=== PATIENT | female | born 1965 | race Two or more races ===

== ENCOUNTER 2025-02-26 18:17 | Emergency (ER) | payer MEDICAID, OTHER ==
[~2025-02-26] VITALS: Ht 154.9 cm; Wt 60.0 kg
[2025-02-26] MEDS ORDERED: KETOROLAC TROMETH 30 MG/ML 1ML VIAL IM ONE (18:45)
--- NOTE | 2025-02-26 18:57 | ED.PDOC ---
History of Present Illness HPI Comments 60 year female presents to the ED with presyncope prior to arrival. She was brought in by EMS. She states she was sitting on the couch no became suddenly dizzy and had numbness on the bilateral lower extremities Patient reports she has recently been diagnosed with migraines and started on topiramate. She has been reporting left facial and left body numbness for several weeks. He had CT head which was negative. Patient has history also includes hypertension, vertigo and arthritis. She is reporting some associated left shoulder pain, headache, dizziness, and palpitations in upper back pain. Review of systems: As stated in HPI PHYSICAL EXAM: General: Awake, alert and oriented. No acute distress. Skin: Skin in warm, dry and intact. Appropriate color for ethnicity. HEENT: The head is normocephalic and atraumatic. Conjunctivae are clear without exudates or hemorrhage. Sclera is non-icteric. Eyelids are normal in appearance without swelling or lesions. Oral mucosa is pink and moist Neck: The neck is supple with normal range of motion. No JVD. Cardiac: Heart rate and rhythm are normal. No murmurs, gallops, or rubs are auscultated. Respiratory: No signs of respiratory distress. Lung sounds are clear in all lobes bilaterally without rales, rhonchi, or wheezes. Abdominal: Abdomen is soft, non-tender without distention, guarding or rigidity. Bowel sounds are present and normoactive in all four quadrants. Extremities: Lower extremities without edema. Neurological: The patient is awake, alert and oriented to person, place, and time with normal speech. Speech is clear. There is no facial asymmetry. Normal [id number] test. Strength in upper and lower extremities intact. Sensation intact. Psychiatric: Appropriate mood and affect. Good judgement and insight. Chief Complaint: Syncope Time Seen by MD: 18:24 Allergies: Coded Allergies: NO KNOWN ALLERGIES (Unverified , 02/26/25) Mode of Arrival: EMS Was a procedure done? Was a procedure done?: No EKG EKG : Comments Sinus rhythm, rate of 88, QTC 448. No STEMI Differential Dx Considerations may include: Differential diagnoses considered include but are not limited to cardiac structural disease, arrhythmia, acute coronary syndrome, orthostasis, pulmonary embolism, dissection, seizure, basilar stroke, other. X-Ray, Labs, Meds, VS Vital Signs Date Time Temp Pulse Resp B/P (MAP) Pulse Ox O2 Delivery O2 Flow Rate FiO2 02/27/25 00:39 70 16 131/72 (91) 98 02/27/25 00:25 Room Air* 0 21 02/26/25 22:18 97.9 73 14 125/81 (96) 97 97.9 02/26/25 21:52 98.2 82 18 118/70 (86) 97 98.2 02/26/25 18:27 88 02/26/25 18:20 98.4 91 16 153/96 98 98.4 Lab Test 02/26/25 18:56 Range/Units White Blood Count 3.9 L 4.4-10.8 10^3/uL Red Blood Count 4.94 4.0-5.20 10^6/uL Hemoglobin 14.2 12.2-16.2 g/dL Hematocrit 41.8 36.0-46.0 % Mean Corpuscular Volume 84.6 80.0-100.0 fL Mean Corpuscular Hemoglobin 28.7 28.0-32.0 pg Mean Corpuscular Hemoglobin Concent 34.0 32.0-36.0 g/dL Red Cell Distribution Width 13.7 11.8-14.3 % Platelet Count 249 140-450 10^3/uL Mean Platelet Volume 7.4 6.9-10.8 fL Neutrophils (%) (Auto) 57.3 37.0-80.0 % Lymphocytes (%) (Auto) 29.9 10.0-50.0 % Monocytes (%) (Auto) 9.3 0.0-12.0 % Eosinophils (%) (Auto) 3.0 0.0-7.0 % Basophils (%) (Auto) 0.5 0.0-2.0 % Neutrophils # (Auto) 2.2 1.6-8.6 10 ^3/uL Lymphocytes # (Auto) 1.2 0.4-5.4 10 ^3/uL Monocytes # (Auto) 0.4 0-1.3 10 ^3/uL Eosinophils # (Auto) 0.1 0-0.8 10 ^3/uL Basophils # (Auto) 0 0-0.2 10 ^3/uL Nucleated Red Blood Cells 0.2 % Sodium Level 136 136-145 mmol/L Potassium Level 3.8 3.5-5.1 mmol/L Chloride Level 101 98-107 mmol/L Carbon Dioxide Level 24 20-31 mmol/L Anion Gap 11 5-15 Blood Urea Nitrogen 7 L 9-23 mg/dL Creatinine 0.53 L 0.550-1.02 mg/dL Glomerular Filtration Rate Calc 105 >90 mL/min BUN/Creatinine Ratio 13.2 10.0-20.0 Serum Glucose 106 74-106 mg/dL Calcium Level 8.9 8.7-10.4 mg/dL Troponin I High Sensitivity 3 L </=34 ng/L B-Type Natriuretic Peptide 13.55 0-100 pg/mL Current Medications Medications (Trade) Dose Ordered Sig/Luis Route Start Time Stop Time Status Last Admin Sodium Chloride 1,000 ml @ 1,000 mls/hr Q1H ONCE IV 02/26/25 22:00 02/26/25 22:59 DC 02/26/25 22:25 Ketorolac Tromethamine (Toradol Injection) 15 mg ONCE ONCE IV 02/26/25 22:30 02/26/25 22:31 DC 02/26/25 22:25 Time of 1ST Reevaluation: 18:52 Reevaluation 1ST: Unchanged Patient Education/Counseling: Need For Follow Up Family Education/Counseling: No Family Present SEPSIS Sepsis Screen Date sepsis recognized/suspect: Feb 26, 2025 Time Sepsis recognized/suspect: 1819 Recent Procedure: No On Antibiotic Therapy: No Respiratory Rate >20: No Heart Rate >90: Yes Temp<36 C (96.8 F) or >38.3 C: No SBP <90 or MAP <65 mmHG: No New Acute Mental Status Change: No Is the patient on CPAP, BIPAP,: No Physician Orders Electrocardigram (02/26/25 18:30) Water Plumber (02/26/25 ) Orthostatic Vital Signs (02/26/25 ) Chest Xray 1 View (02/26/25 21:09) Head Without Contrast (02/26/25 22:28) Vital Signs Date Time Temp Pulse Resp B/P (MAP) Pulse Ox O2 Delivery O2 Flow Rate FiO2 02/27/25 00:39 70 16 131/72 (91) 98 02/27/25 00:25 Room Air* 0 21 02/26/25 22:18 97.9 73 14 125/81 (96) 97 97.9 02/26/25 21:52 98.2 82 18 118/70 (86) 97 98.2 02/26/25 18:27 88 02/26/25 18:20 98.4 91 16 153/96 98 98.4 Laboratory Tests Test 02/26/25 18:56 White Blood Count 3.9 10^3/uL (4.4-10.8) L Departure 1 Departure Time of Disposition: 21:34 Impression: Primary Impression: Dizziness Additional Impression: Headache Disposition: 01 HOME / SELF CARE / HOMELESS Condition: Stable Additional Instructions: INSTRUCCIONES DE MARY GRACE DE Urgencias Instrucciones: Xiomara atentamente todas las instrucciones proporcionadas en adrian paquete. Aunque le hayan dado el mary grace del Departamento de Emergencias, esto no significa que tenga un "certificado de buena ángel". Hoy no se lombardi realizado ningn diagnstico definitivo para larisa sntomas. Es posible que ests en proceso de desarrollar benny enfermedad grave. Es por eso que debe regresar al servicio de ur gencias sin falta si presenta algn sntoma nuevo o que empeora (especialmente si larisa sntomas incluyen dolor en el pecho, dificultad para respirar, dolor abdominal, fiebre, dolor de madison, confusin, dificultad para lizett o caminar). Everette es muy importante que consulte a un mdico de atencin primaria dentro de los prximos 3 a 5 osorio para realizar un seguimiento. Si no puede conseguir benny stacy, regrese al servicio de urgencias para benny nueva evaluacin. Mareos: Instrucciones de cuidado Descripcin general El mareo es la sensacin de inestabilidad o confusin mental. Es diferente del vrtigo, que es la sensacin de que la habitacin da vueltas, de que jennifer se mueve o se . Tambin es diferente del aturdimiento, que es la sensacin de estar a punto de desmayarse. Puede ser difcil saber qu causa el mareo. Algunas personas se sienten mareadas cuando tienen migraas. A veces, los episodios de gripe pueden causar mareos. Algunas afecciones mdicas, elvia problemas cardacos o hipertensin arterial, tambin pueden causar mareos. Muchos medicamentos pueden causar mareos, incluyendo los medicamentos para la hipertensin, el dolor o la ansiedad. Si un medicamento le causa los sntomas, caputo mdico podra recomendarle que lo suspenda o lo cambie. Si se trata de un problema cardaco, podra necesitar medicamentos para mejorar caputo funcionamiento. Si no hay benny causa christian de larisa sntomas, caputo mdico podra sugerirle que observe y espere un tiempo para lizett si el mareo desaparece por s solo. El seguimiento es fundamental para caputo tratamiento y seguridad. Asegrese de programar y acudir a todas larisa citas, y llame a caputo mdico si tiene algn pr oblema. Everette es recomendable estar al tanto de los resultados de larisa pruebas y llevar benny lista de los medicamentos que diane. Ton Container Filler puedes cuidarte en casa? Si caputo mdico le recomienda o le receta un medicamento, tmelo exactamente elvia se lo indique. Llame a caputo mdico si evan que tiene algn problema con caputo medicamento. No conduzca si se siente mareado. Intente prevenir las cadas. Algunas medidas que puede myke son: Usar tapetes antideslizantes, agregar barras de apoyo cerca de la baera y usar luces nocturnas. Limpiar caputo casa para que los pasillos estn libres de cualquier cosa con la que pueda tropezar. Avisar a familiares y amigos que se lombardi sentido mareado les ayudar a saber paper cutting machine operator ayudarle. Cundo debes pedir ayuda? Llame al 911 en cualquier momento que considere que necesita atencin de emergencia. Por ejemplo, llame si: Te desmayaste (perdiste el conocimiento). Tienes mareos repentinos que no mejoran. Tiene mareos y sntomas de un infarto. Estos pueden incluir: Dolor o presin en el pecho, o benny sensacin extraa en el pecho. Transpiracin. Dificultad para respirar. Nuseas o vmitos. Dolor, presin o benny sensacin extraa en la espalda, el gonzales, la mandbula o la parte superior del abdomen o en jennifer o ambos hombros o brazos. Mareo o debilidad repentina. Un ritmo cardaco rpido o irregular. Tiene sntomas de un derrame cerebral. Estos pueden incluir: Entumecimiento repentino, hormigueo, debilidad o prdida de movimiento en la misty, el brazo o la pierna, especialmente en un solo lado del cuerpo. Cambios repentinos en la visin. Dificultad repentina para hablar. Confusin repentina o dificultad para comprender afirmaciones simples. Problemas repentinos con la marcha o el equilibrio. Un dolor de madison repentino y kevan que es diferente a los tanna de madison anteriores. Llame a caputo mdico ahora o busque atencin mdica inmediata si: Se siente mareado y tiene fiebre, dolor de madison o zumbido en los odos. Tiene nuseas y vmitos nuevos o en aumento. El mareo no desaparece ni regresa. Preste atencin a los cambios en caputo ángel y asegrese de comunicarse con caputo mdico si: No mejoras elvia esperabas Crditos para el mareo: Instrucciones de cuidado Actualizado al: 3 de diciere 2023 Autor: Personal de [facility] Junta de revisin clnica Toda la educacin de [facility], [facility] es revisada por un equipo que incluye mdicos, enfermeras, profesionales avanzados, dietistas registrados y otros profesionales de la ángel. Dolor de madison por migraa: instrucciones de cuidado Tabla de contenido Descripcin general Ton Container Filler puedes cuidarte en casa? Cundo debes pedir ayuda? Crditos Descripcin general Las migraas son tanna de madison punzantes y dolorosos que suelen comenzar en un lado de la madison. Pueden causar nuseas y vmitos y hacer que el paciente se vuelva sensible a la ashish, los sonidos o los olores. Sin tratamiento, las migraas pueden durar desde 4 horas hasta algunos osorio. Los medicamentos pueden ayudar a prevenir las migraas o detenerlas benny vez que hayan comenzado. Caputo mdico puede ayudarlo a encontrar los que funcionan mejor para usted. El seguimiento mdico es benny parte fundamental de caputo tratamiento y caputo seguridad. Asegrese de programar y acudir a todas las citas, y llame a caputo mdico si tiene problemas. Tambin es benny buena idea saber los resultados de larisa pruebas y llevar benny lista de los medicamentos que diane. Ton Container Filler puedes cuidarte en casa? No conduzca si lombardi tomado algn analgsico recetado. Descanse en benny habitacin tranquila y oscura hasta que desaparezca el dolor de madison. Cierre los ojos e intente relajarse o dormir. No mc televisin ni xiomara. Coloque un kenny hmedo y fro o benny compresa fra sobre la frank dolorida filipe 10 a 20 minutos cada vez. Coloque un kenny cornelio entre la compresa fra y la piel. Utilice benny toalla tibia y hmeda o benny almohadilla trmica a temperatura baja para relajar los msculos tensos de los hombros y el gonzales. Pdale a alguien que le masajee suavemente el gonzales y los hombros. [place] larisa medicamentos exactamente elvia le hayan recetado. Llame a caputo mdico si evan que tiene un problema con caputo medicamento. Recibir ms detalles sobre los medicamentos especficos que le recete caputo mdico. No tome medicamentos para el dolor de madison con demasiada frecuencia. Hable con caputo mdico si est tomando medicamentos ms de 2 osorio a la semana para aliviar el dolor de madison. Myke demasiados analgsicos puede provocar ms tanna de madison. Estos se denominan tanna de madison por uso excesivo de medicamentos. Para prevenir las migraas Lleva un diario de tus tanna de madison para que puedas identificar qu los desencadena. Evitar los desencadenantes puede ayudarte a prevenirlos. Registra cundo comenz cada dolor de madison, cunto dur y paper cutting machine operator fue. Anota cualquier otro sntoma que hayas tenido junto con el dolor de madison, elvia nuseas, luces intermitentes o manchas oscuras, o sensibilidad a la ashish brillante o a los ruidos marco a. Anota si el dolor de madison se produjo cerca de tu perodo. Haz benny lista de todo lo que podra leonid desencadenado el dolor de madison. Los desencadenantes pueden incluir ciertos alimentos (chocolate, queso, vino) u olores, humo, ashish brillante, estrs o falta de sueo. Si caputo mdico le lombardi recetado medicamentos para las migraas, tmelos segn las indicaciones. Puede myke medicamentos solo cuando le d migraa y medicamentos que tome todo el tiempo para ayudar a prevenir las migraas. Si caputo mdico le lombardi recetado un medicamento para cuando le duele la madison, tmelo ante la primera seal de migraa, a menos que le haya dado otras instru cciones. Si caputo mdico le lombardi recetado medicamentos para prevenir las migraas, tmelos exactamente elvia se lo indiquen. Llame a caputo mdico si evan que tiene un problema con caputo medicamento. Busque formas saludables de lidiar con el estrs. Las migraas son ms comunes filipe o inmediatamente despus de perodos estresantes. Intente encontrar formas de reducir el estrs, elvia practicar la atencin plena o ejercicios de respiracin profunda. Duerma trenton y gonzalo ejercicio, su tenga cuidado de no esforzarse demasiado filipe el ejercicio, ya que puede provocarle dolor de madison. Siga un horario regular para comer. Evite los alimentos y las bebidas que suelen desencadenar migraas, elvia el chocolate, el alcohol (especialmente el vino tinto y el oporto), el aspartamo, el glutamato monosdico (GMS) y algunos aditivos presentes en los alimentos (elvia los perritos calientes, el tocino, los embutidos, los quesos curados y los encurtidos). Limite la cafena. No tome demasiado caf, t o refrescos, su no deje de myke cafena de repente, ya que tambin puede provocarle migraas. No fume ni permita que otras personas fumen cerca de usted. Si necesita ayuda para dejar de fumar, hable con caputo mdico sobre programas y medicamentos para dejar de fumar. Estos pueden aumentar larisa probabilidades de dejar de fumar para siempre. Si est tomando pldoras anticonceptivas o terapia hormonal, hable con caputo mdico sobre si gabby son las causas de larisa migraas. Cundo debes pedir ayuda? Llame al 911 en cualquier momento en que considere que puede necesitar atencin de emergencia. Por ejemplo, llame si: Tiene sntomas de un accidente cerebrovascular, que pueden incluir: Entumecimiento repentino, parlisis o debilidad en la misty, el brazo o la pierna, especialmente en un solo lado del cuerpo. Cambios repentinos en la visin. Dificultad repentina para hablar. Confusin repentina o dificultad para comprender afirmaciones simples. Problemas repentinos con la marcha o el equilibrio. Un dolor de madison repentino y kevan que es diferente a los tanna de madison anteriores. Llame a caputo mdico ahora o busque atencin mdica inmediata si: Tienes fiebre y el gonzales rgido. Tu dolor de madison empeora mucho. Preste atencin a los cambios en caputo ángel y asegrese de comunicarse con caputo mdico si: Larisa tanna de madison empeoran, ocurren con ms frecuencia o cambian de alguna manera. Tienes nuevos sntomas. Tu paulette se ve alterada por tus tanna de madison. Por ejemplo, a menudo faltas al trabajo, a la escuela o a otras actividades. No mejoras elvia esperabas Crditos para la migraa: instrucciones de cuidado Actualizado al: 3 de diciembre 2023 Autor: Personal de [employer] Junta de revisin clnica Toda la educacin de [employer] es revisada por un equipo que incluye mdicos, enfermeras, profesionales avanzados, dietistas registrados y otros profesionales de la ángel. Comments Patient well-appearing, nontoxic with no neuro deficit in the emergency department. Lab and imaging results reviewed, not urgently actionable. Patient is feeling improved. She is felt stable to follow up with the primary care provider for further evaluation. Critical Care Note Critical Care Time?: No Stability Stability form required: No Heart Score Heart Score: Heart Score Response (Comments) Value History N/A 0 EKG N/A 0 Age N/A 0 Risk Factors N/A 0 Troponin N/A 0 Total 0 AMERICA MENENDEZ MD Feb 26, 2025 18:57
[2025-02-26 19:14] LABS: Hematocrit 41.8 % (36.0-46.0); Hemoglobin 14.2 g/dL (12.2-16.2); Mean Corpuscular Hemoglobin 28.7 pg (28.0-32.0); Mean Corpuscular Volume 84.6 fL (80.0-100.0); Nucleated Red Blood Cells % 0.2 %
[2025-02-26 19:24] LABS: Chloride 101 mmol/L (98-107); Potassium 3.8 mmol/L (3.5-5.1)
[2025-02-26 19:25] LABS: Anion Gap 11 (5-15); Calcium 8.9 mg/dL (8.7-10.4); Carbon Dioxide 24 mmol/L (20-31)
[2025-02-26 19:30] LABS: BUN/Creatinine Ratio 13.2 (10.0-20.0); Glucose 106 mg/dL (74-106)
[2025-02-26 19:32] LABS: Blood Urea Nitrogen 7 mg/dL (9-23); Sodium 136 mmol/L (136-145)
--- NOTE | 2025-02-26 21:51 | DVH ---
EXAM: XY CHEST XRAY 1 VIEW HISTORY: Left shoulder pain, palpitations, presyncope TECHNIQUE: 1 view of the chest COMPARISON: None FINDINGS/IMPRESSION: LUNGS: No pleural effusion, consolidation, or pneumothorax. MEDIASTINUM: Unremarkable. BONES: No acute osseous abnormality. OTHER: None.
[2025-02-26 22:18] VITALS: TEMP 97.9
[2025-02-26] MEDS: ACETAMINOPHEN 325 MG TAB PO ONE (22:24)
[2025-02-26] MEDS: SODIUM CHLORIDE 0.9% 1,000 ML IV ONE (22:25)
[2025-02-26] MEDS: KETOROLAC TROMETH 30 MG/ML 1ML VIAL IV ONE (22:25)
--- NOTE | 2025-02-27 00:09 | DVH ---
EXAM: CT HEAD WITHOUT CONTRAST INDICATION: Headaches, left facial numbness, bilateral lower extremity n TECHNIQUE: CT of the head without intravenous contrast. Radiation Dose : 1. Head: CT Dose: CTDI volume is 49.16 mGy. Dose-length product is 886.56 mGy*cm The dose indicators for CT are the volume Computed Tomography (CT) Dose Index (CTDIvol) and the Dose Length Product (DLP), and are measured in units of mGy and mGy-cm, respectively. These indicators are not patient dose, but values generated from the CT scanner acquisition factors. The report includes radiation exposure data for exposures received during this examination. COMPARISON: None FINDINGS: Brain: No acute hemorrhage, mass effect, or cerebral edema. CSF Spaces: Size and morphology within normal limits. Bones/Soft Tissues: No acute findings. Orbits/Sinuses/Mastoids: Unremarkable as visualized. IMPRESSION: 1. No acute intracranial abnormality. Radiation optimization: All CT scans at this facility use at least one of these dose optimization techniques: automated exposure control mA and/or kV adjustment per patient size (includes targeted exams where dose is matched to clinical indication) or iterative reconstruction.
[2025-02-27 00:39] VITALS: BP 131/72; PULSE 70; RESP 16; O2SAT 98
--- NOTE | 2025-02-27 06:50 | ECG ---
[facility] Test Date: 2025-02-26 Test Time: 18:27:49 Pat Name: YENI MITCHELL Department: ED Room: Gender: F Silver Cleaner: ER : [id number] Requested By: AMERICA MENENDEZ Order Number: [id number] Reading MD: Pedro Mead Measurements Intervals [place] Rate: 88 P: 50 VT: 147 QRS: 38 QRSD: 82 T: 49 QT: 370 QTc: 448 Interpretive Statements Sinus rhythm Low voltage, precordial leads Electronically Signed On 02-27-2025 11:45:29 PST by Pdero Mead Please click the below link to view image of tracing.
== END 2025-02-27 00:42 | disposition home or self-care (01) ==
LOC: ER 18:17 → EDBD 18:17 → ER 02-27 00:42
DX: R42 Dizziness and giddiness (principal); R51.9 Headache, unspecified; I10 Essential (primary) hypertension; M19.90 Unspecified osteoarthritis, unspecified site
CPT/HCPCS: 36415; 70450; 71045; 80048; 83880; 84484; 85025; 93005; 96361; 96374; 99285; J1885; J7030